=== PATIENT | male | born 1980 | race Caucasian/White ===

== ENCOUNTER 2016-09-03 07:10 | Inpatient (IN) ==
--- NOTE | 2016-09-03 08:35 | Diag Imaging Result Document ---
PROCEDURE NAME: CHEST-2 VIEWS - 09/03/2016 CHEST, 2 VIEWS: COMPARISON: 03/02/2012. FINDINGS: Heart size is normal. There is an ill-defined opacity at the right apex. There is a cavity with air-fluid level in the right apex. The remainder of the lungs appear clear. There is no pleural effusion or pneumothorax identified. IMPRESSION: Ill-defined opacity with cavity at right apex. Considering the patient's age, this is likely represents an atypical infectious process, although malignancy is not excluded. Tuberculosis may be a consideration. Correlation with clinical evaluation is recommended. Verbal results provided to Dr. Rebollar at 8:24 a.m. on 09/03/2016. [facility]
[2016-09-03 08:56] LABS: MANUAL DIFF NEEDED? NO
--- NOTE | 2016-09-03 08:57 | PROVIDER DOCUMENTATION ---
HPI-Respiratory General - General Chief Complaint: Flu Symptoms Stated Complaint: BACK PAIN/SOB Time Seen by Provider: 09/03/16 08:37 Source: patient - History of Present Illness-Resp Nature of Presenting Problem: patient is 36 y/o M that presents with 5 days cough, short of breath, and chest pain x 5 days. reports body aches but no fever. pt is a smoker Quality of Pain: reports: aching Severity in ED: reports: mild Onset/Duration: reports: gradual Timing: reports: still present, constant Context: reports: multiple patients with similar complaints Cough Quality/Degree: reports: moderate, productive cough Episode Frequency: no prior episodes Current Respiratory Medication Therapy: Initiated none Modifying Factors: improves with: coughing. worse with: exertion Associated Symptoms: reports: cough, muscle/bodyaches, shortness of breath, short of breath. denies: fever/chills, nasal congestion, nasal drainage, wheezing Similar Symptoms Previously?: No Recently seen or treated by another doctor?: No Review of Systems - Adult - REVIEW OF SYSTEMS - ADULT Constitutional: denies: chills, fever Eyes: reports: no symptoms reported Ears, Nose, Mouth & Throat: reports: no symptoms reported Cardiovascular: reports: chest pain. denies: palpitations, syncope Respiratory: reports: cough, shortness of breath, wheezing Gastrointestinal: reports: no symptoms reported Genitourinary: reports: no symptoms reported Musculoskeletal: reports: muscle aches. denies: frequent leg cramps Integumentary: reports: no symptoms reported Neurological: reports: no symptoms reported Psychiatric: reports: no symptoms reported Endocrine: reports: no symptoms reported Hematologic/Lymphatic: reports: no symptoms reported Allergic/Immunologic: reports: no symptoms reported All Other Systems: Reviewed and Negative Past History - Adult - PAST MEDICAL HISTORY-ADULT Review of Records: reports: Old Records Reviewed, Nursing Assessment Review, Medications Reviewed - PRIOR SURGERIES/PROCEDURES Surgical/Procedure History: reports: none - IMMUNIZATION STATUS Childhood Immunizations: See Nurse Assessment Flu Vaccine: See Nurse Assessment - FAMILY HISTORY Family History: reviewed, not pertinent - SOCIAL HISTORY Smoking: cigarettes, less than 1 pack/day Living Situation: family Physical Exam-General - PHYSICAL EXAM-ADULT Initial Vital Signs Reviewed: Yes - CONSTITUTIONAL General Appearance: alert, mild distress - EYES Eyes: PERRL/EOMI, pink conjunctivae - HEAD, EARS, NOSE, MOUTH & THROAT HENMT: normocephalic/atraumatic, moist mucous membranes, normal ENT inspection - NECK Neck: full range of motion, normal inspection - RESPIRATORY Respiratory: no respiratory distress, no accessory muscle use, decreased breath sounds - CARDIOVASCULAR Cardiovascular: regular rate, rhythm, no edema, no murmur - GASTROINTESTINAL (ABDOMEN) Abdominal Exam: normal bowel sounds, non tender, soft - MUSCULOSKELETAL Extremity: normal range of motion, normal inspection - SKIN Integumentary: normal color, warm/dry - NEUROLOGIC Neurologic: grossly normal, no motor/sensory deficits - PSYCHIATRIC Psych/Mental Status: normal mood/affect, normal thought content, normal thought process, oriented x 3 Progress - PLAN OF CARE/RESULTS Progress/Plan/Lab Results: Vital Signs Temp Pulse Resp BP Pulse Ox 09/03/16 07:28 97.3 F L 97 H 20 135/87 98 Orders Category Date Time Status CHEST-2 VIEWS [RAD] Stat Exams 09/03/16 07:32 Draft CBC WITH DIFF [HEME] Stat Lab 09/03/16 08:38 Ordered COMPREHENSIVE METABOLIC PANEL [CHEM] Stat Lab 09/03/16 08:[address] Stat Lab 09/03/16 07:32 Uncollected QUANTIFERON [ANTOINE] Stat Lab 09/03/16 08:38 Ordered - XRAY 1 XRAY Study: Chest Impression: Abnormal XRAY Interpretation: ill defined opacity right apex, atypical infection possible - CONSULTS/PCP/HOSPITALIST Notification #1 *Consult/PCP/Hospitalist*: ( dental receptionist for hospitalist) Time Discussed: 08:54 Consult Disposition: Will see in ED, Admit Departure - Departure Time of Disposition Order: 08:56 DIAGNOSIS: Shortness of breath, Cavitary lung disease Disposition: ADMITTED INPATIENT 09 Certified Medical Emergency: Emergent Condition: Stable Attestation - Scribe Verification/Attestation Scribe:: Stevie Aguila Acting as Scribe for:: Grady Rebollar Scribe documention review:: This chart was documented by a scribe and accurately reflects the service the provider performed and the decisions made by the provider. Physician Attestation - Physician Attestation I, the provider, attest to the following statement:: Grady Rebollar Physician documentation Attestation:: This documentation recorded by the scribe accurately reflects the service I personally performed and the decisions made by me.
[2016-09-03 09:01] LABS: BASO% 0.6 % (0.0-0.8); EOS# 0.14 X1000 (0.0-0.7); HEMATOCRIT 43.1 % (42.0-52.0); HEMOGLOBIN 14.8 g/dL (14.0-18.0); IMM GRAN% 0.7 % (0.0-0.5); LYMPH# 2.17 X1000 (1.2-3.4); LYMPH% 14.8 % (20.5-51.1); MCH 33.6 PG (27-31); MCHC 34.3 g/dL (33-37); MCV 97.7 FL (81-99); MPV 8.9 FL (7.4-10.4); NEUT% 69.9 % (42.2-75.2); PLT 303 X1000 (130-400); RBC 4.41 XMIL (4.7-6.1)
[2016-09-03 09:28] LABS: AGAP 16; ALBUMIN 4.3 g/dL (3.5-5.0); ALKALINE PHOSPHATASE 100 U/L (32-122); BUN 16 mg/dL (8-22); CALCIUM 9.5 mg/dL (8.8-10.2); CHLORIDE 95 mmol/L (98-107); COSMO 269; GOT 66 U/L (10-34); GPT 70 U/L (10-44); POTASSIUM 3.3 mmol/L (3.5-5.1); SODIUM 132 mmol/L (136-145); TCO2 21 mmol/L (25-35); TOTAL PROTEIN 8.3 g/dL (6.3-8.3)
[2016-09-03] MEDS ORDERED: ZOFRAN IV PRN (10:18)
[2016-09-03] MEDS ORDERED: LEVAQUIN 500 MG/D5W 100 ML IV SCH (10:18)
[2016-09-03] MEDS ORDERED: LEVAQUIN 500 MG/D5W 100 ML IV ONE (10:18)
[2016-09-03] MEDS ORDERED: VANCOMYCIN IV PER PHARMACY MISC SCH (11:45)
[2016-09-03] MEDS ORDERED: NS 1,000 ML IV SCH (11:45)
[2016-09-03] MEDS ORDERED: VANCOMYCIN 2,000 MG in NS 500 ML IV ONE (15:00)
[2016-09-03] MEDS: ZOSYN 3.375 GM/NS 50 ML IV SCH ×2 (17:33→23:24)
--- NOTE | 2016-09-03 17:56 | Diag Imaging Result Document ---
PROCEDURE NAME: CT THORAX W/CONTRAST - 09/03/2016 CT OF THE CHEST WITH INTRAVENOUS CONTRAST: FINDINGS: There are no previous studies. There is a thick-walled cavitary lesion present in the right apex. This measures 3.9 cm in greatest transverse dimension. There is apparently an air- fluid level within the cavity. There is surrounding ground-glass opacity present. There is a nodular opacity present on image 120 in the right lower lobe measuring less than 6 mm in diameter. There are some nonspecific linear opacities in the lateral costophrenic sulcus of the right lower lobe. There is some focal pleural thickening in the left costophrenic sulcus. There is a fairly flat pleural-based lesion present, best seen on image 163 in the left lower lobe. This has a thickness of less than 9 mm but is at least 2.6 cm in diameter. There are some nonspecific axillary nodes bilaterally, one on the right side measuring as much as 14 mm in diameter. There is an 11 mm right paratracheal node. There are no abnormal fluid collections. There is apparent hepatic steatosis. There are some small subcentimeter nodes in the celiac region. No acute bony abnormalities are present in the thoracic spine. IMPRESSION: Multiple pulmonary nodules. Cavitary lesion in the right apex with surrounding pneumonitis. This is likely due to granulomatous disease. Possibility of reactivation tuberculosis cannot be excluded.
--- NOTE | 2016-09-03 18:40 | CONSULTATION ---
DATE OF CONSULTATION: 09/03/2016 CONCLUSION: This gentleman has a 1-week history of what appears to be a pneumonia involving the upper lung. There is cavitation present in it. Even though there is a cavity I think most likely that the lesion is due to aspiration pneumonia especially in view of the fact that the patient admits that he drinks quite a bit of alcohol rather than the TB although I cannot say for sure that it could not be TB. Also, there are many other possibilities. Even a malignancy should be considered. RECOMMENDATIONS: I have suggested getting sputums for Gram stain, C and S, AFB smear and culture, fungal prep and culture. I also requested that a QuantiFERON test for TB be ordered. In the meanwhile I think it is reasonable to treat the patient with a combination of vancomycin and Zosyn to cover the many bacteria that would be involved in a cavitary lesion after aspiration pneumonia such as Staph aureus including methicillin-resistant Staph aureus, some gram-negative rods that are aerobic and anaerobic organisms as well. The combination of vancomycin and Zosyn will cover these organisms well. DISCUSSION: The patient tells me that approximately a week ago he started having pleuritic right chest pain. He also started coughing up sputum. He told me that he did not really look at the sputum so he is not sure what color it was. He had fever and chills, and a couple of nights he had some night sweats. His weight, however, has been pretty stable. Laboratory studies thus far show a CBC with a white count of 14,670, hemoglobin 14.8, platelet count 303,000, creatinine 0.9. GFR is greater than 60. Swab for influenza is negative. Chest x-ray shows a right upper lobe cavitary mass. PAST MEDICAL HISTORY/REVIEW OF SYSTEMS: Eyes and ears: He denies difficulty hearing or seeing. Neck: No stiffness. Respiratory: Prior to his present illness he was not having any difficulty breathing. Cardiovascular: Prior to the present illness he was not having any chest pain and he has not had any palpitations. Gastrointestinal: No nausea, vomiting, or diarrhea. Genitourinary: No dysuria or flank pain. Endocrine: He does not have diabetes or thyroid disease. Hematologic: No history of an anemia or bleeding tendency. Bones, joints, muscles: No joint swelling or muscle aching. The remainder of the patient's review of systems was completed and was negative. PREVIOUS HOSPITALIZATIONS AND OPERATIONS: None. MEDICAL DISEASES: Negative for diabetes mellitus and hypertension. INFECTIOUS DISEASE HISTORY: Negative for pneumonia and UTI. FAMILY HISTORY: Positive for cancer, diabetes mellitus and hypertension. SOCIAL HISTORY: [place] He is . He has a cat as a pet. He works as a pizza cook. He smokes cigarettes and drinks alcoholic beverages. He denies drug abuse. MEDICATIONS: His only home medication is omeprazole. PHYSICAL EXAMINATION: Vital Signs: Temperature is 98.7 degrees, pulse 84, respirations 18, blood pressure 134/79. The patient told me he weighs 178 pounds. General: This is a slightly obese but otherwise healthy young male. He is in no acute distress. HEENT: He can hear my spoken words and see near objects. There were no lesions in his mouth. Neck: No meningismus. Thorax: No increased AP diameter. Lungs: Clear to auscultation. Cardiovascular: Heart rate is regular. Abdomen: Soft and nontender. Neurologic: Patient is alert. He can move his extremities. There is no tremor. His sensation is intact to touch. His memory as regarding his medical history appeared intact. Integument: No rash noted. Thank you for the consultation.
[2016-09-03] MEDS: TYLENOL PO PRN (21:34)
[2016-09-04] MEDS: TYLENOL PO PRN (03:03)
[2016-09-04] MEDS: VANCOMYCIN 1,800 MG in NS 250 ML IV SCH ×2 (03:03→17:05)
[2016-09-04] MEDS: ZOSYN 3.375 GM/NS 50 ML IV SCH ×3 (05:45→20:29)
[2016-09-04 05:55] LABS: HEMATOCRIT 39.8 % (42.0-52.0); HEMOGLOBIN 13.5 g/dL (14.0-18.0); MCHC 33.9 g/dL (33-37); MCV 97.3 FL (81-99); MPV 9.1 FL (7.4-10.4); RBC 4.09 XMIL (4.7-6.1)
[2016-09-04] MEDS: PRILOSEC PO SCH (05:59)
[2016-09-04] MEDS ORDERED: POTASSIUM CHLORIDE 20 MEQ, MAGNESIUM SULFATE 2 GM, THIAMINE 100 MG, FOLIC ACID 1 MG, M.... IV SCH ×6 (09:15)
[2016-09-04] MEDS ORDERED: NS 1,000 ML IV SCH ×2 (09:15)
[2016-09-04 09:56] LABS: ALBUMIN 3.4 g/dL (3.5-5.0); ALKALINE PHOSPHATASE 93 U/L (32-122); BUN 13 mg/dL (8-22); CALCIUM 8.2 mg/dL (8.8-10.2); CHLORIDE 97 mmol/L (98-107); COSMO 267; GOT 57 U/L (10-34); GPT 51 U/L (10-44); POTASSIUM 3.7 mmol/L (3.5-5.1); SODIUM 134 mmol/L (136-145); TCO2 19 mmol/L (25-35); TOTAL BILIRUBIN 1.12 mg/dL (0.20-1.00); TOTAL PROTEIN 7.5 g/dL (6.3-8.3)
[2016-09-04 09:59] LABS: AGAP 18
[2016-09-04] MEDS: NS 1,000 ML IV SCH (10:00)
--- NOTE | 2016-09-04 10:46 | PROGRESS NOTE ---
DATE: 09/04/2016 SUBJECTIVE: The patient notes that he is feeling a little bit better. Still having mild cough and congestion. He denies any production to his cough. Of significant note, the patient notes that he has been a heavy drinker for quite some time. Stopped approximately 7 days ago. He denies any seizures with stopping. He denies any withdrawal symptoms currently. He denies any fevers or chills. PHYSICAL EXAMINATION: Vital signs reviewed. Temperature 98 degrees, pulse 80, respiratory rate 18, BP 110/73, saturation 100% on room air. General: The patient is well developed and well nourished, currently in no real respiratory distress. He is awake alert, pleasant to talk with. HEENT: Normocephalic, atraumatic. DELMI. Neck supple. CV: Regular rate. Chest: Relatively clear. Abdomen soft. Extremities: Moves all extremities. Neurologic: No changes. Skin warm and dry. No rashes. ASSESSMENT: 1. Pneumonia with cavitary lesions likely secondary to recurrent aspiration pneumonia. 2. Chronic alcoholism. The patient notes that he has recently stopped drinking. 3. Chronic tobacco abuse. Again, I discussed with the patient the perils of smoking as well as ways to stop. PLAN: We will continue patient on antibiotics. Appreciate Dr. Knowles' input with the antibiotic choices of vancomycin and Zosyn. Will continue for the next 2-3 days and reassess.
--- NOTE | 2016-09-04 12:33 | HISTORY AND PHYSICAL ---
CHIEF COMPLAINT: Cough, generalized body aches, shortness of breath. HISTORY OF PRESENT ILLNESS: This is a 36-year-old gentleman with a negative past medical history who presented to the emergency room complaining of about a week of generalized body aches, a productive cough, and shortness of breath that increased over the last 24 hours. Over the last 2 or 3 days, he has developed a pleuritic right-sided chest pain due to the increased amount of coughing. He has had subjective fever and chills with night sweats for the 3 nights prior to coming to the emergency room. His weight has been stable. He has been around no known ill contacts, has had no travel out of the country. Chest x-ray revealed ill-defined opacity with a cavity at the right apex, likely representing a typical infectious process, although malignancy or TB could not be excluded. He was found to have a white count of 14,670 with a hemoglobin of 14.8 and platelets of 303,000, with negative influenza A and B swabs. He is being admitted for further evaluation and treatment. PAST MEDICAL HISTORY: Denies. PAST SURGICAL HISTORY: Denies. SOCIAL HISTORY: He does smoke about a pack a day. He does drink alcohol quite a bit daily. He denies any illicit drug use. ALLERGIES: No known drug allergies. HOME MEDICATIONS: Omeprazole, which he does not take consistently. REVIEW OF SYSTEMS: A 14-point review of systems is discussed with the patient, with pertinent positives being cough - productive, congestion, shortness of breath, dyspnea on exertion, fever, chills, night sweats, right-sided pleuritic chest pain. He denied palpitations, dizziness, syncope, PND, orthopnea, any nausea, vomiting, diarrhea, constipation, black or bloody vomitus, black or bloody stools, any recent weight loss or weight gain, hematuria, dysuria, frequency, or urgency. PHYSICAL EXAMINATION: GENERAL: This is a 36-year-old male who is sitting up in the bed in no distress. VITAL SIGNS: Blood pressure is 134/79 with a heart rate of 84. Respirations are 18, temperature is 98.7 degrees oral, with room air saturations of 98% to 100%. HEENT: Head is normocephalic, atraumatic. Pupils equal, round, react to light. EOMs are intact. Sclerae are anicteric. Mucous membranes are dry. NECK: Supple with trachea midline. CARDIOVASCULAR: Regular rate and rhythm. S1, S2 appreciated. PULMONARY: Breath sounds are decreased with no increased work of breathing noted. Chest does rise and fall symmetrically with respiration. GASTROINTESTINAL: Abdomen is soft, nontender, nondistended, with bowel sounds in all 4 quadrants. BACK: No CVAT. No spine tenderness. MUSCULOSKELETAL: Good range of motion of joints. NEUROLOGIC: He is alert and oriented x3. Cranial nerves 2-12 grossly intact. EXTREMITIES: No clubbing, cyanosis, or edema. Calves are nontender. Pulses are palpable x4. DIAGNOSTICS: Chest x-ray revealed ill-defined opacity with cavity at the right apex. Considering the patient's age, this likely represents a typical infectious process although malignancy is not excluded. TB may be a consideration. LABORATORIES: WBC is 14.6 with hemoglobin of 14.8, hematocrit 43.1, and platelets of 303,000. Sodium is 132, potassium 3.3, BUN 16, creatinine 0.9, with a glucose of 164. AST is 66, ALT is 70. Influenza A and B are negative. ASSESSMENT AND PLAN: 1. Right apex cavity cavitary lesion. Causes could be multifactorial. This could be an infectious process. Malignancy and TB are in the differential diagnosis. I did speak with Dr. Simone Knowles in Infectious Disease. We will order sputum. QuantiFERON has been obtained and is sent to [facility]. We will obtain sputums as per his direction. He will be placed on respiratory isolation. We will give IV hydration and antibiotic coverage of vancomycin and Zosyn to cover the bacteria that would be involved in the cavitary lesion after aspiration pneumonia, such as Staphylococcus aureus or methicillin-resistant Staphylococcus aureus, some Gram-negative rods, aerobic and anaerobic. 2. Hypokalemia. 3. Leukocytosis, as stated above. 4. Hyponatremia. Will trend electrolytes, replete as necessary. 5. Hyponatremia. Will give IV fluids and trend electrolytes. 6. Elevated AST and ALT. We will trend laboratories. 7. Tobacco abuse and use. Will give a nicotine patch. 8. Alcohol abuse. We will give him a banana bag, as he does drink quite a bit daily, and will watch for any withdrawal or DTs. Further treatments pending hospital course. Dictated by EUSEBIA Cruz for Wally Pretty MD
[2016-09-04] MEDS: POTASSIUM CHLORIDE 20 MEQ, MAGNESIUM SULFATE 2 GM, THIAMINE 100 MG, FOLIC ACID 1 MG, M.... IV SCH ×6 (15:00)
[2016-09-04] MEDS: NICODERM PATCH TD SCH (17:06)
[2016-09-05] MEDS: ZOSYN 3.375 GM/NS 50 ML IV SCH ×4 (02:48→20:49)
[2016-09-05] MEDS: VANCOMYCIN 1,800 MG in NS 250 ML IV SCH ×2 (02:49→15:21)
[2016-09-05] MEDS: PRILOSEC PO SCH ×2 (05:57→06:05)
[2016-09-05 06:01] LABS: HEMATOCRIT 39.8 % (42.0-52.0); HEMOGLOBIN 13.8 g/dL (14.0-18.0); MCH 33.4 PG (27-31); MCHC 34.7 g/dL (33-37); MCV 96.4 FL (81-99); MPV 8.9 FL (7.4-10.4); RBC 4.13 XMIL (4.7-6.1)
[2016-09-05 06:16] LABS: AGAP 11; ALBUMIN 3.6 g/dL (3.5-5.0); ALKALINE PHOSPHATASE 78 U/L (32-122); BUN 7 mg/dL (8-22); CALCIUM 8.2 mg/dL (8.8-10.2); CHLORIDE 102 mmol/L (98-107); COSMO 272; GOT 40 U/L (10-34); GPT 45 U/L (10-44); POTASSIUM 3.6 mmol/L (3.5-5.1); SODIUM 137 mmol/L (136-145); TCO2 24 mmol/L (25-35); TOTAL PROTEIN 6.5 g/dL (6.3-8.3)
[2016-09-05] MEDS: NS 1,000 ML IV SCH (08:21)
[2016-09-05] MEDS: NICODERM PATCH TD SCH (08:21)
[2016-09-05] MEDS: POTASSIUM CHLORIDE 20 MEQ, MAGNESIUM SULFATE 2 GM, THIAMINE 100 MG, FOLIC ACID 1 MG, M.... IV SCH ×6 (10:25)
--- NOTE | 2016-09-05 11:47 | PROGRESS NOTE ---
DATE: 09/05/2016 SUBJECTIVE: Patient notes that he is feeling a lot better this morning. States that he is actually able to lay on his side and sleep whereas he had not been able to do that previously. States that he is having less cough and congestion, although still having a productive cough. He is having no chest pains or palpitations. PHYSICAL EXAMINATION: Vital Signs: Temperature 100, pulse 61, respiratory rate 18, BP 121/74, saturations 95% on room air. General: The patient is well developed, well nourished. Currently in no respiratory distress. He is awake, alert, lying in bed. HEENT: Normocephalic, atraumatic. DELMI. Neck: Supple. CV: Regular rate. Chest: Relatively clear. Decreased breath sounds on the right. ASSESSMENT: 1. Right upper lobe cavitary lesion, likely aspiration pneumonia, although certainly could be tuberculosis. Tests are still pending. 2. Hypokalemia, resolved. 3. Leukocytosis, improving. 4. Hyponatremia, resolved. 5. Acute hepatitis. AST and ALT both improving. 6. Chronic tobacco abuse. 7. Chronic alcohol abuse. PLAN: We will continue patient in isolation until cleared by Infectious Disease. We will continue vancomycin and Zosyn. Again, discussed with patient the perils of smoking as well as drinking. Patient notes that he has stopped drinking, has been without alcohol for 9 days now so certainly his risk of withdrawal should be minimal. Hopefully home in 1-2 days.
[2016-09-06] MEDS: ZOSYN 3.375 GM/NS 50 ML IV SCH ×5 (03:06→20:09)
[2016-09-06] MEDS: VANCOMYCIN 1,800 MG in NS 250 ML IV SCH ×2 (03:07→14:42)
[2016-09-06] MEDS: PRILOSEC PO SCH (06:19)
--- NOTE | 2016-09-06 08:09 | PROGRESS NOTE ---
DATE: 09/06/2016 SUBJECTIVE: Patient states he is feeling much better. He is having much less cough. Still having some production of the cough. Denies any fevers, chills. Denies shortness of breath. States he is able to lie flat in the bed now without any difficulty. OBJECTIVE: Vital Signs: Reviewed. Temperature 97, pulse 69, respiratory rate 18, BP 121/78, saturation 100% on room air. General: Patient well developed, well nourished. Currently, no respiratory distress. He is awake, alert, oriented. Neck: Supple. CV: Regular rate. Chest: Relatively clear. Abdomen: Soft, nondistended. Extremities: Moves all extremities. LABS: Reviewed and stable. ASSESSMENT: 1. Right apex cavitary lesion, likely pneumonia given his improvement. 2. Hypokalemia, resolved. 3. Leukocytosis, resolved. 4. Hyponatremia, resolved. 5. Acute hepatitis, improving. 6. Chronic tobacco abuse. 7. Chronic alcohol abuse. PLAN: Again, discussed with patient the perils of smoking and alcohol. Discussed with him ways to stop both. The patient was noted to have a cavitary lesion on admission. It was certainly concerning that this could be TB. Dr. Knowles was consulted and several labs were ordered, which are still pending. Hopefully, patient can be discharged home later this afternoon and follow up with Dr. Knowles.
[2016-09-06] MEDS: POTASSIUM CHLORIDE 20 MEQ, MAGNESIUM SULFATE 2 GM, THIAMINE 100 MG, FOLIC ACID 1 MG, M.... IV SCH ×6 (09:50)
[2016-09-06] MEDS: NICODERM PATCH TD SCH ×2 (09:59→11:49)
--- NOTE | 2016-09-06 11:28 | Diag Imaging Result Document ---
PROCEDURE NAME: CHEST-2 VIEWS - 09/06/2016 CHEST 2 VIEWS: Compared with 09/03/2016. Heart size is normal. There is ill- defined opacity with air-containing cavity again seen at the right apex. The right apical opacity appears mildly smaller or less dense compared to the previous exam. There is less fluid in the right apical cavity compared to the previous exam. The remainder of the lungs appear grossly clear. There is no pleural effusion or pneumothorax identified. IMPRESSION: Some improvement in cavitary lesion at right apex compared to prior. [facility]
[2016-09-07] MEDS: ZOSYN 3.375 GM/NS 50 ML IV SCH ×4 (02:07→20:41)
[2016-09-07] MEDS: VANCOMYCIN 1,800 MG in NS 250 ML IV SCH ×2 (03:13→18:27)
[2016-09-07] MEDS: PRILOSEC PO SCH (06:14)
--- NOTE | 2016-09-07 11:23 | PROGRESS NOTE ---
DATE: 09/07/2016 SUBJECTIVE: Patient has no focal complaints. He wants to go home. He feels like his lungs are clear. OBJECTIVE: Vital signs: Blood pressure 101/61, heart rate 72, respiratory rate 18, temperature 97.9 degrees. Cardiovascular: Regular rate and rhythm. Pulmonary: Bilateral breath sounds. Clear to auscultation. GI: Soft, nontender, nondistended. Bowel sounds are positive. Extremities: No clubbing or cyanosis. Lymphatics: No peripheral edema. Neurological: Nonfocal. LABORATORY DATA: None new today. ASSESSMENT AND PLAN: 1. Cavitary pneumonia. He is on Zosyn and vancomycin and seems to be controlled. He does have a history, it looks like, of alcohol issues. We are waiting for his QuantiFERON or AFB smears to be negative before he can go home for ruling out tuberculosis, although studies are still pending, unfortunately. 2. Hypokalemia. That has resolved. 3. Hepatitis. Probably needs to be screened for hepatitis. I cannot tell that we have done that yet. So I am going to check that, repeat his enzymes tomorrow, and we will continue to follow. 4. Disposition. Pending, waiting his other tests. We will go from there.
[2016-09-07] MEDS: POTASSIUM CHLORIDE 20 MEQ, MAGNESIUM SULFATE 2 GM, THIAMINE 100 MG, FOLIC ACID 1 MG, M.... IV SCH ×6 (11:41)
[2016-09-07] MEDS: NICODERM PATCH TD SCH (16:31)
[2016-09-07] MEDS: NS 500 ML IV ONE ×2 (17:30→18:42)
[2016-09-08] MEDS: ZOSYN 3.375 GM/NS 50 ML IV SCH ×2 (03:43→09:13)
[2016-09-08 06:40] LABS: HEMATOCRIT 40.2 % (42.0-52.0); HEMOGLOBIN 13.8 g/dL (14.0-18.0); MCH 32.8 PG (27-31); MCHC 34.3 g/dL (33-37); MCV 95.5 FL (81-99); MPV 8.9 FL (7.4-10.4); RBC 4.21 XMIL (4.7-6.1)
[2016-09-08] MEDS: PRILOSEC PO SCH (06:44)
[2016-09-08] MEDS: VANCOMYCIN 1,800 MG in NS 250 ML IV SCH (06:44)
--- NOTE | 2016-09-08 06:46 | PROGRESS NOTE ---
DATE: 09/08/2016 The patient's QuantiFERON is negative. Also, the smears for fungi and AFB are negative. Cultures are pending. I think first of all, we can discontinue the patient's isolation, which I have done. I would suggest sending the patient home today on a combination of Augmentin 875 mg and Cipro 500 mg, each given b.i.d. If you could go ahead and give him 50 tablets of each and I will see the patient back in my office in 3 weeks at which time I will examine him and also repeat the patient's chest x-ray. I asked the microbiology lab to send me the results of all the patient's cultures. [facility]TDD
[2016-09-08 06:51] LABS: AGAP 13; ALBUMIN 3.5 g/dL (3.5-5.0); ALKALINE PHOSPHATASE 75 U/L (32-122); BUN 8 mg/dL (8-22); CALCIUM 9.3 mg/dL (8.8-10.2); CHLORIDE 101 mmol/L (98-107); COSMO 274; GOT 94 U/L (10-34); GPT 132 U/L (10-44); POTASSIUM 3.3 mmol/L (3.5-5.1); SODIUM 137 mmol/L (136-145); TCO2 23 mmol/L (25-35); TOTAL PROTEIN 7.4 g/dL (6.3-8.3)
[2016-09-08] MEDS: NICODERM PATCH TD SCH (09:13)
[2016-09-08 10:49] VITALS: BP 123/79
[2016-09-08 11:09] LABS: HEPATITIS PROFILE ACUTE SEE COMMENTS (())
[2016-09-08] MEDS ORDERED: KLOR-CON PO ONE (11:53)
--- NOTE | 2016-09-08 20:00 | DISCHARGE SUMMARY ---
ADMISSION DATE: 09/03/2016 DISCHARGE DATE: 09/08/2016 ADMISSION DIAGNOSES: 1. Cavitary pneumonia presumably bacterial type. 2. History of alcohol abuse. 3. History of tobacco abuse. DISCHARGE DIAGNOSES: 1. Cavitary pneumonia presumably bacterial type. 2. History of alcohol abuse. 3. History of tobacco abuse. CONSULTATIONS: Infectious Disease - Simone Knowles M.D. HOSPITAL COURSE: Briefly this is a 36-year-old male with no significant history except for alcohol and tobacco use who came in with shortness of breath, fevers, chills. He had a cavitary lesion in his right apex. He was empirically placed on antibiotics vancomycin and Zosyn. Dr. Knowles was consulted. He had a TB test done as well as a QuantiFERON. There was concern for an aspiration type pneumonia especially with his alcohol use. Clinically he improved, however, the delay was just getting the QuantiFERON which had been completed prior to discharge and was negative. His AFB smear was negative as well. On day of discharge he was afebrile, breathing comfortably on room air, 98% sats, white count was normal at 9.8, and he was felt stable for discharge. I discussed the case with Dr. Knowles who recommended 25 days of Augmentin and Cipro and follow up with him, and he would decide about repeating CT scan versus x-ray. DISCHARGE CONDITION: Stable. DISCHARGE INSTRUCTIONS: 1. He was told to avoid alcohol and tobacco. 2. Return for worsening symptoms. DISCHARGE TIME: 32 minutes.
== END 2016-09-08 14:05 | disposition home or self-care (01) | DRG 194 ==
LOC: P.ED 07:10 → P.MEDSURG 07:11
PROVIDERS: ATTEND Internal Medicine
DX: J15.9 Unspecified bacterial pneumonia (principal); E87.1 Hypo-osmolality and hyponatremia; E87.6 Hypokalemia; F17.210 Nicotine dependence, cigarettes, uncomplicated; R74.8 Abnormal levels of other serum enzymes; F10.20 Alcohol dependence, uncomplicated
CPT/HCPCS: 36415; 71020; 71260; 80053; 80074; 80202; 85025; 85027; 86480; 87015; 87070; 87102; 87116; 87147; 87205; 87206; 87804; 94761; 99285; A9579; J2543; J3370; J3411; J3475; J3480; J7030; J7040; J7050